=== PATIENT | male | born 1990 | race Two or more races ===

== ENCOUNTER 2018-12-10 06:27 | Emergency (ER) | payer SELFPAY ==
[2018-12-10] MEDS ORDERED: METOCLOPRAMIDE HCL ORAL SOLN 10 MG/10 ML UDCUP PO ONE (08:09)
[2018-12-10] MEDS ORDERED: MAG HYDROX/AL HYDROX/SIMETH SUSP 30 ML UDCUP PO ONE (08:09)
[2018-12-10] MEDS ORDERED: LIDOCAINE 2% VISCOUS SOLN 20 ML UDCUP PO ONE (08:09)
[2018-12-10 08:16] LABS: ABSOLUTE EOSINOPHILS # (AUTO) 0.1 10^3/uL (0.0-0.6); ABSOLUTE LYMPHOCYTES (AUTO) 1.3 10^3/uL (0.5-4.7); ABSOLUTE MONOCYTES (AUTO) 0.7 10^3/uL (0.1-1.4); ABSOLUTE NEUT (AUTO) 9.6 10^3/uL (1.7-8.2); BASOPHILS % (AUTO) 0.3 % (0-2); EOSINOPHILS % (AUTO) 1.2 % (0-6); HEMATOCRIT 44.2 % (37.9-51.0); HEMOGLOBIN 15.3 g/dL (13.5-17.0); LYMPHOCYTES % (AUTO) 11.3 % (13-45); MEAN CORPUSCULAR HEMOGLOBIN 31.4 pg (27.0-33.4); MEAN CORPUSCULAR HGB CONC 34.6 g/dL (32.0-36.0); MEAN CORPUSCULAR VOLUME 91 fl (80-97); MONOCYTES % (AUTO) 6.2 % (3-13); PLATELET COUNT 215 10^3/uL (150-450); RED BLOOD COUNT 4.88 10^6/uL (4.35-5.55); RED CELL DISTRIBUTION WIDTH 13.4 % (11.5-14.0); TOTAL CELLS COUNTED % (AUTO) 100 %; WHITE BLOOD COUNT 11.8 10^3/uL (4.0-10.5)
[2018-12-10 08:35] LABS: ALBUMIN 4.1 g/dL (3.5-5.0); ALKALINE PHOSPHATASE 108 U/L (38-126); ANION GAP 9 (5-19); ASPARTATE AMINO TRANSFERASE 37 U/L (17-59); BILIRUBIN,DIRECT 0.1 mg/dL (0.0-0.4); BILIRUBIN,TOTAL 0.5 mg/dL (0.2-1.3); BLOOD UREA NITROGEN 10 mg/dL (7-20); CALCIUM 9.3 mg/dL (8.4-10.2); CARBON DIOXIDE 25 mmol/L (22-30); CHLORIDE 104 mmol/L (98-107); GLUCOSE 99 mg/dL (75-110); POTASSIUM 4.4 mmol/L (3.6-5.0); TOTAL PROTEIN 7.2 g/dL (6.3-8.2)
--- NOTE | 2018-12-10 08:58 | ER Document Report ---
ED General - General Chief Complaint: Abdominal Pain Stated Complaint: STOMACH PAIN Time Seen by Provider: 12/10/18 08:08 TRAVEL OUTSIDE OF THE [place] IN LAST 30 DAYS: No - HPI Notes: Patient is a 28-year-old male with no significant past medical history presents complaining of epigastric abdominal pain that began yesterday. Patient states that he was drinking a few days ago, but only drank one beer yesterday when he started noticing discomfort in his epigastrium. Patient states that he was nauseous at the time but did not vomit. He is otherwise urinating normally and having normal bowel movements without any melena or hematochezia. Denies drug allergies. No other concerns or complaints. Denies any headache, fever, neck pain, URI, sore throat, chest pain, palpitations, syncope, cough, shortness of breath, wheeze, dyspnea, vomiting/diarrhea, urinary retention, dysuria, hematuria, or rash. - Related Data Allergies/Adverse Reactions: No Known Allergies Allergy (Unverified 12/10/18 08:20) Past Medical History - Social History Smoking Status: Current Every Day Smoker Frequency of alcohol use: 3 days straight, but one beer last night Family History: Reviewed & Not Pertinent Patient has suicidal ideation: No Patient has homicidal ideation: No Review of Systems - Review of Systems -: Yes All other systems reviewed and negative Physical Exam - Vital signs Vitals: Temp Pulse Resp BP Pulse Ox 98.2 F 76 16 150/83 H 100 12/10/18 06:33 12/10/18 06:33 12/10/18 06:33 12/10/18 06:33 12/10/18 06:33 - Notes Notes: PHYSICAL EXAMINATION: GENERAL: Well-appearing, well-nourished and in no acute distress. HEAD: Atraumatic, normocephalic. EYES: Pupils equal round and reactive to light, extraocular movements intact, sclera anicteric, conjunctiva are normal. ENT: Nares patent and without discharge. oropharynx clear without exudates. No tonsilar hypertrophy or erythema. Moist mucous membranes. NECK: Normal range of motion, supple without lymphadenopathy LUNGS: Breath sounds clear to auscultation bilaterally and equal. No wheezes rales or rhonchi. HEART: Regular rate and rhythm without murmurs, rubs, gallops. ABDOMEN: Soft, nondistended abdomen. No guarding, no rebound. No masses appreciated. Normal bowel sounds present. No CVA tenderness bilaterally. [place] neg. No tenderness at [place]. Very mild tenderness epigastrum. Musculoskeletal: FROM to passive/active. Strength 5+/5. Extremities: No cyanosis, clubbing, or edema b/l. Peripheral pulses 2+. Capillary refill less than 3 seconds. NEUROLOGICAL: Normal speech, normal gait. PSYCH: Normal mood, normal affect. SKIN: Warm, Dry, normal turgor, no rashes or lesions noted. Course - Re-evaluation Re-evalutation: 12/10/18 08:56 Patient is an afebrile, well-hydrated, 28-year-old male who presents to the ED with epigastric abdominal pain, suspect gastritis/gerd. Vitals are acceptable without any significant tachycardia, tachypnea, or hypoxia. PE is otherwise unremarkable. CBC, CMP, lipase, UA was unremarkable for any acute pathology. Patient was given GI cocktail which completely resolved his symptoms. No other labs or imaging warranted at this time based on H&P. Patient is tolerating p.o. without difficulties and is nontoxic-appearing. Low suspicion/risk for acute appendicitis, bowel obstruction, acute cholecystitis, perforated diverticulitis, incarcerated hernia, pancreatitis, perforated ulcer, peritonitis, sepsis, testicular torsion, or other systemic emergent condition at this time. Patient is aware that his condition can change from initial presentation and he needs to monitor symptoms closely and seek medical attention if any acute changes. I will send him home with a prescription for omeprazole and Carafate. Conservative measures otherwise for symptoms. Recheck with PCM in 3-5 days. Consider consult with a hog worker. Return to the ED with any worsening/concerning symptoms otherwise as reviewed in discharge. Patient is in agreement. - Vital Signs Vital signs: Temp Pulse Resp BP Pulse Ox 98.2 F 76 16 150/83 H 100 12/10/18 06:33 12/10/18 06:33 12/10/18 06:33 12/10/18 06:33 12/10/18 06:33 - Laboratory Result Diagrams: 12/10/18 08:00 12/10/18 08:00 Laboratory results interpreted by me: 12/10/18 08:00 WBC 11.8 H Lymph % (Auto) 11.3 L Absolute Neuts (auto) 9.6 H Seg Neutrophils % 81.0 H Discharge - Discharge Clinical Impression: Epigastric pain Condition: Stable Disposition: HOME, SELF-CARE Additional Instructions: Maintain adequate fluid and food intake [place] diet (B.R.[employer].T.) Bananas, rice, apples, toast, etc Avoid alcohol tylenol if needed Monitor for any worsening symptoms Make sure you are staying hydrated enough to urinate and have normal BM's Recheck with your PCM in 3-5 days Consider consult with Gastroenterology for ongoing/worsening symptoms Return to the ED with any worsening symptoms and/or development of fever, headache, chest pain, palpitations, syncope, shortness of breath, trouble breathing, abdominal pain, n/v/d, blood in stool/urine, weakness, or other worsening symptoms that are concerning to you. Prescriptions: Sucralfate [Carafate] 1 gm PO BID #100 ml Omeprazole 20 mg PO DAILY #30 tablet.dr Forms: Elevated Blood Pressure, Smoking Cessation Education Referrals: JAYCEE WINKLER MD [ACTIVE STAFF] - Follow up as needed SRUTHI MCKAY MD [ACTIVE STAFF] - Follow up as needed
[2018-12-10 09:14] LABS: APPEARANCE,URINE CLEAR; BILIRUBIN,URINE NEGATIVE (NEGATIVE); COLOR,URINE YELLOW; GLUCOSE, URINE NEGATIVE (NEGATIVE); KETONES,URINE NEGATIVE (NEGATIVE); LEUKOCYTE ESTERASE,URINE NEGATIVE (NEGATIVE); NITRITE,URINE NEGATIVE (NEGATIVE); PROTEIN,URINE NEGATIVE (NEGATIVE); URINE SPECIFIC GRAVITY 1.009; UROBILINOGEN,URINE NEGATIVE mg/dL (<2.0)
[2018-12-10 10:32] VITALS: BP 127/48
== END 2018-12-10 09:33 | disposition home or self-care (01) ==
LOC: ER 06:27
DX: R10.13 Epigastric pain (principal); R11.0 Nausea; F17.200 Nicotine dependence, unspecified, uncomplicated
CPT/HCPCS: 99284; 36415; 83690; 85025; 80053; 81001; J3490

== ENCOUNTER 2019-02-17 06:43 | Emergency (ER) | payer SELFPAY ==
[2019-02-17 08:49] LABS: APPEARANCE,URINE CLEAR; BILIRUBIN,URINE NEGATIVE (NEGATIVE); COLOR,URINE COLORLESS; GLUCOSE, URINE NEGATIVE (NEGATIVE); KETONES,URINE NEGATIVE (NEGATIVE); LEUKOCYTE ESTERASE,URINE NEGATIVE (NEGATIVE); NITRITE,URINE NEGATIVE (NEGATIVE); PROTEIN,URINE 30 mg/dL (NEGATIVE); URINE SPECIFIC GRAVITY 1.003; UROBILINOGEN,URINE NEGATIVE mg/dL (<2.0)
[2019-02-17 08:50] LABS: ABSOLUTE EOSINOPHILS # (AUTO) 0.1 10^3/uL (0.0-0.6); ABSOLUTE LYMPHOCYTES (AUTO) 2.1 10^3/uL (0.5-4.7); ABSOLUTE MONOCYTES (AUTO) 0.6 10^3/uL (0.1-1.4); ABSOLUTE NEUT (AUTO) 3.9 10^3/uL (1.7-8.2); BASOPHILS % (AUTO) 0.5 % (0-2); EOSINOPHILS % (AUTO) 0.8 % (0-6); HEMATOCRIT 50.7 % (37.9-51.0); HEMOGLOBIN 18.1 g/dL (13.5-17.0); LYMPHOCYTES % (AUTO) 31.4 % (13-45); MEAN CORPUSCULAR HEMOGLOBIN 32.8 pg (27.0-33.4); MEAN CORPUSCULAR HGB CONC 35.8 g/dL (32.0-36.0); MEAN CORPUSCULAR VOLUME 92 fl (80-97); MONOCYTES % (AUTO) 8.9 % (3-13); PLATELET COUNT 252 10^3/uL (150-450); RED BLOOD COUNT 5.54 10^6/uL (4.35-5.55); SEGMENTED NEUTROPHILS % (AUTO) 58.4 % (42-78); TOTAL CELLS COUNTED % (AUTO) 100 %; WHITE BLOOD COUNT 6.7 10^3/uL (4.0-10.5)
[2019-02-17 09:04] LABS: URINE AMPHETAMINES SCREEN NEGATIVE; URINE BARBITURATES SCREEN NEGATIVE; URINE BENZODIAZEPINES SCREEN NEGATIVE; URINE COCAINE SCREEN NEGATIVE; URINE METHADONE SCREEN NEGATIVE; URINE PHENCYCLIDINE SCREEN NEGATIVE
[2019-02-17 09:09] LABS: URINE MARIJUANA (THC) SCREEN UNCONFIRMED POSITIVE
[2019-02-17 09:15] LABS: ALBUMIN 4.4 g/dL (3.5-5.0); ALCOHOL 293 mg/dL (NONE DETECTED); ALKALINE PHOSPHATASE 131 U/L (38-126); ANION GAP 14 (5-19); ASPARTATE AMINO TRANSFERASE 79 U/L (17-59); BILIRUBIN,DIRECT 0.3 mg/dL (0.0-0.4); BILIRUBIN,TOTAL 0.5 mg/dL (0.2-1.3); BLOOD UREA NITROGEN 9 mg/dL (7-20); CALCIUM 9.2 mg/dL (8.4-10.2); CARBON DIOXIDE 27 mmol/L (22-30); CHLORIDE 100 mmol/L (98-107); GLUCOSE 103 mg/dL (75-110); POTASSIUM 4.1 mmol/L (3.6-5.0); TOTAL PROTEIN 7.8 g/dL (6.3-8.2)
[2019-02-17] MEDS ORDERED: DEXTROSE 5%-LACTATED RINGERS 1,000 ML IV ONE (09:26)
[2019-02-17] MEDS ORDERED: FAMOTIDINE INJ/PF 20 MG/2 ML SDV IV ONE (09:27)
--- NOTE | 2019-02-17 09:27 | ER Document Report ---
ED General - General Chief Complaint: Alcohol Withdrawl Stated Complaint: ALCOHOL WITHDRAWL Time Seen by Provider: 02/17/19 09:00 Mode of Arrival: Ambulatory Information source: Patient Notes: Patient reports that he has been drinking Fozia for the last for 5 days. States he is at home with other relatives during this drinking binge that he has been on. States he is not suicidal homicidal. States that he perhaps drinks a little bit too much on this binge and therefore is has come to the emergency department because he had some nausea. Denies any abdominal pain diarrhea or seizure activity or chest pain. Denies headache. Denies any fever or chills. Patient reports that he is not alcoholic however he does state that he is a binge alcohol drinker. TRAVEL OUTSIDE OF THE [place] IN LAST 30 DAYS: No - HPI Onset: Other - 4 days ago Onset/Duration: Gradual Quality of pain: Other - Some abdominal nausea present. Severity: Moderate Pain Level: 0 Associated symptoms: Nausea Exacerbated by: Other - Excess alcohol drinking Relieved by: Other - No medications have been taking for relief. Similar symptoms previously: Yes Recently seen / treated by doctor: No - Related Data Allergies/Adverse Reactions: No Known Allergies Allergy (Unverified 12/10/18 08:20) Past Medical History - Social History Smoking Status: Unknown if Ever Smoked Drug Abuse: None Lives with: Family Family History: Reviewed & Not Pertinent Patient has suicidal ideation: No Patient has homicidal ideation: No Psychiatric Medical History: Reports: Hx Schizophrenia Past Surgical History: Reports: Hx Appendectomy Review of Systems - Review of Systems Constitutional: See HPI Gastrointestinal: See HPI, Nausea Physical Exam - Vital signs Vitals: Temp Pulse Resp BP Pulse Ox 98.3 F 107 H 20 141/85 H 97 02/17/19 07:01 02/17/19 07:01 02/17/19 07:01 02/17/19 07:01 02/17/19 07:01 Interpretation: Normal - General General appearance: Appears well, Alert - HEENT Head: Normocephalic, Atraumatic Eyes: Normal Pupils: PERRL - Respiratory Respiratory status: No respiratory distress Chest status: Nontender Breath sounds: Normal Chest palpation: Normal - Cardiovascular Rhythm: Regular, Tachycardia Heart sounds: Normal auscultation Murmur: No - Abdominal Inspection: Normal Distension: No distension Bowel sounds: Normal Tenderness: Nontender Organomegaly: No organomegaly - Back Back: Normal, Nontender - Extremities General upper extremity: Normal inspection, Nontender, Normal color, Normal ROM, Normal temperature General lower extremity: Normal inspection, Nontender, Normal color, Normal ROM, Normal temperature, Normal weight bearing. No: Suleman's sign - Neurological Neuro grossly intact: Yes Cognition: Normal Orientation: AAOx4 [place]ika Coma Scale Eye Opening: Spontaneous [place] Coma Scale Verbal: Oriented [place] Coma Scale Motor: Obeys Commands [place] Coma Scale Total: 15 Speech: Normal Motor strength normal: LUE, RUE, LLE, RLE Sensory: Normal - Psychological Associated symptoms: Normal affect, Normal mood - Skin Skin Temperature: Warm Skin Moisture: Dry Skin Color: Normal Course - Re-evaluation Re-evalutation: 02/17/19 16:26 Patient had 1 vomiting episode while in the ED which was green bilious liquid. Patient's tachycardia has improved with IV fluid administration. Patient is resting comfortably with no signs of tremors or delirium tremens at this time. Pending most recent blood test for alcohol level prior to discharge. 02/17/19 16:58 Repeat evaluation of serum alcohol level came back at 157. - Vital Signs Vital signs: Temp Pulse Resp BP Pulse Ox 98.1 F 107 H 18 144/80 H 100 02/17/19 14:20 02/17/19 07:01 02/17/19 14:00 02/17/19 13:31 02/17/19 13:31 - Laboratory Result Diagrams: 02/17/19 07:57 02/17/19 07:57 Laboratory results interpreted by me: 02/17/19 02/17/19 02/17/19 07:57 07:57 07:59 Hgb 18.1 H AST 79 H Alkaline Phosphatase 131 H Ammonia Urine Protein 30 H Urine Blood SMALL H 02/17/19 08:32 Hgb AST Alkaline Phosphatase Ammonia 33.3 H Urine Protein Urine Blood Discharge - Discharge Clinical Impression: Acute alcohol intoxication, Dehydration, Nausea and vomiting Condition: Stable Disposition: HOME, SELF-CARE Instructions: Antinausea Medication ([facility]) Additional Instructions: Vomiting Vomiting (or nausea without vomiting) can be caused by many other different problems. It can mean that something's wrong with the stomach, such as ulcers or inflammation or the intestinal tract, such as appendicitis. But it can also be a symptom of a problem that has nothing to do with the stomach or intestines. Vomiting is common with severe headaches, earaches, tonsillitis, and kidney infections, etc. We see it with pneumonia or heart attacks. Drugs can cause nausea and vomiting. Many abdominal problems cause vomiting; for example, gallstones, kidney stones, pancreatitis, and intestinal obstruction (blocked bowels). In most cases, curing the vomiting depends on fixing the problem that caused it. For temporary relief, we may use an anti-nausea medicine. For home use, we can prescribe suppositories, chewable pills, pills that dissolve in the mouth, or liquid anti-nausea drugs. If the vomiting seems to be caused by a problem in the stomach, acid-suppressing drugs may be prescribed as well. It's important to avoid dehydration. Sip small amounts of clear liquids (soft drinks, tea, broth, etc) . Try to take fluids frequently even if you are vomiting to prevent dehydration. Take increasing amounts of fluid and when liquids are being consumed successfully, advance to small amounts of bland food (toast, soups, mashed potatoes, etc.) until you are able to resume a regular diet. Avoid aspirin, tobacco, and alcohol. If the vomiting worsens, if the problem that's making you vomit worsens, or if there's evidence of bleeding in the stomach (such as black, tarry stool, or bloody or black vomit), you should return immediately. Also, return if abdominal pain worsens or becomes localized to one area or you develop high fever. Call your doctor if you aren't improved in 24 hours.Alcohol Withdrawal Your symptoms are caused by alcohol withdrawal. After a period of frequent drinking, the brain and body are changed by the alcohol. When you quit or reduce your drinking, the nervous system becomes unstable. Withdrawal symptoms can start a few hours after your last drink, but sometimes don't begin until a couple of days later. Symptoms can include shakiness, sweating, insomnia, nausea, vomiting, fearfulness, hallucinations, and seizures. In addition to the acute effects of alcohol withdrawal, we often have to deal with the medical effects of alcoholism. These problems often include dehydration, stomach irritation, intestinal bleeding, low blood sugar, liver disease, and pancreas inflammation. Treatment for alcohol withdrawal includes mild sedatives, vitamins, and fluids. You need to be with someone who can help if symptoms become severe. Many patients can withdraw at home. Admission to the hospital or a detox facility may be necessary if withdrawal symptoms are severe and uncontrollable. Abstaining from alcohol is the only effective long-term treatment. If you start drinking again, you will not be able to control yourself after the first drink. Treatment programs are available. In addition, many alcoholics benefit from Alcoholics Anonymous or other support groups available through your counselor or synagogue ham doctor. [facility] and [facility]TE[facility] are support groups for friends and family members of an alcoholic. Go to the emergency room if you develop persistent vomiting, severe abdominal pain, fever, shortness of breath, hallucinations, uncontrollable tremors, or seizures. Recommend follow-up with mental health clinic regarding alcohol detox. Prescriptions: Chlordiazepoxide HCl [Librium 25 mg Capsule] 1 cap PO QID PRN #20 capsule PRN Reason: Famotidine [Pepcid 40 mg Tablet] 40 mg PO DAILY #20 tablet
[2019-02-17] MEDS ORDERED: NORMAL SALINE 1000 ML 1,000 ML with POTASSIUM CHLORIDE 20 MEQ, MAGNESIUM SULFATE 8 MEQ,... IV ONE ×5 (09:30)
[2019-02-17] MEDS ORDERED: LORAZEPAM INJ 2 MG/1 ML VIAL IV ONE ×2 (12:54→15:28)
[2019-02-17] MEDS ORDERED: RINGERS SOLUTION,LACTATED 1,000 ML IV ONE (15:29)
[2019-02-17 17:57] VITALS: BP 156/87
== END 2019-02-17 17:50 | disposition home or self-care (01) ==
LOC: ER 06:43
DX: F10.129 Alcohol abuse with intoxication, unspecified (principal); E86.0 Dehydration; R11.2 Nausea with vomiting, unspecified; R00.0 Tachycardia, unspecified
CPT/HCPCS: 96376; 99284; 96361; 96375; 96365; 96366; 36415; 80307 ×2; 82140; 85025; 80053; 81001; J3475; J2060; J3480; J3411; J7121; J7030; J7120; S0028; J3490

== ENCOUNTER 2019-02-19 20:58 | Emergency (ER) | payer SELFPAY ==
--- NOTE | 2019-02-19 22:08 | ER Document Report ---
ED Medical Screen (RME) - General Chief Complaint: Chest Pain Stated Complaint: CHEST PAINS,ABDOMINAL AND BACK PAIN Time Seen by Provider: 02/19/19 22:05 Mode of Arrival: Wheelchair Information source: Patient Notes: 28-year-old male presented to ED for complaint of severe sharp chest pain. He states he has been drinking beer and vodka and Fozia for the last 6 days. He states he has a history of schizophrenia and binge drinking. He does smoke a pack a day. He states he also smokes marijuana and works at a construction site. He states today he is only had 2 beer but is been drinking heavily every day for 6 days. I have greeted and performed a rapid initial assessment of this patient. A comprehensive ED assessment and evaluation of the patient, analysis of test results and completion of medical decision making process will be conducted by an additional ED providers. TRAVEL OUTSIDE OF THE [place] IN LAST 30 DAYS: No - Related Data Allergies/Adverse Reactions: No Known Allergies Allergy (Unverified 12/10/18 08:20) Past Medical History Psychiatric Medical History: Reports: Hx Schizophrenia Past Surgical History: Reports: Hx Appendectomy Physical Exam - Vital signs Vitals: Temp Pulse Resp BP Pulse Ox 98.6 F 111 H 20 165/80 H 97 02/19/19 21:08 02/19/19 21:08 02/19/19 21:08 02/19/19 21:08 02/19/19 21:08 Course - Vital Signs Vital signs: Temp Pulse Resp BP Pulse Ox 98.6 F 111 H 20 165/80 H 97 02/19/19 21:08 02/19/19 21:08 02/19/19 21:08 02/19/19 21:08 02/19/19 21:08
[2019-02-19 22:37] LABS: ABSOLUTE LYMPHOCYTES (AUTO) 1.8 10^3/uL (0.5-4.7); HEMOGLOBIN 16.3 g/dL (13.5-17.0); TOTAL CELLS COUNTED % (AUTO) 100 %
[2019-02-19 22:44] LABS: ABSOLUTE NEUT (AUTO) 7.8 10^3/uL (1.7-8.2); BASOPHILS % (AUTO) 0.3 % (0-2); EOSINOPHILS % (AUTO) 0.4 % (0-6); HEMATOCRIT 45.3 % (37.9-51.0); LYMPHOCYTES % (AUTO) 16.9 % (13-45); MEAN CORPUSCULAR HEMOGLOBIN 32.9 pg (27.0-33.4); MEAN CORPUSCULAR HGB CONC 35.9 g/dL (32.0-36.0); MEAN CORPUSCULAR VOLUME 92 fl (80-97); PLATELET COUNT 218 10^3/uL (150-450); RED BLOOD COUNT 4.95 10^6/uL (4.35-5.55); RED CELL DISTRIBUTION WIDTH 12.8 % (11.5-14.0); SEGMENTED NEUTROPHILS % (AUTO) 73.4 % (42-78); WHITE BLOOD COUNT 10.6 10^3/uL (4.0-10.5)
[2019-02-19 22:54] LABS: APPEARANCE,URINE CLEAR; BILIRUBIN,URINE NEGATIVE (NEGATIVE); COLOR,URINE COLORLESS; GLUCOSE, URINE NEGATIVE (NEGATIVE); KETONES,URINE NEGATIVE (NEGATIVE); PROTEIN,URINE NEGATIVE (NEGATIVE); URINE SPECIFIC GRAVITY 1.001; UROBILINOGEN,URINE NEGATIVE mg/dL (<2.0)
--- NOTE | 2019-02-19 22:54 | RADIOLOGY REPORT (SQ) ---
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 COMPARISON: None. FINDINGS: Normal heart size without pulmonary edema. The lungs are clear. No pleural effusions or pneumothorax. No acute bony findings are seen. IMPRESSION: No evidence of acute cardiopulmonary disease.
[2019-02-19 22:59] LABS: ALBUMIN 4.6 g/dL (3.5-5.0); ALKALINE PHOSPHATASE 124 U/L (38-126); ANION GAP 17 (5-19); ASPARTATE AMINO TRANSFERASE 51 U/L (17-59); BILIRUBIN,DIRECT 0.3 mg/dL (0.0-0.4); BILIRUBIN,TOTAL 0.7 mg/dL (0.2-1.3); BLOOD UREA NITROGEN 2 mg/dL (7-20); CALCIUM 8.8 mg/dL (8.4-10.2); CARBON DIOXIDE 24 mmol/L (22-30); CHLORIDE 96 mmol/L (98-107); GLUCOSE 98 mg/dL (75-110); POTASSIUM 3.9 mmol/L (3.6-5.0); TOTAL PROTEIN 7.8 g/dL (6.3-8.2)
--- NOTE | 2019-02-19 23:03 | EKG REPORT ---
SEVERITY:- BORDERLINE ECG - SINUS TACHYCARDIA BORDERLINE T WAVE ABNORMALITIES : Confirmed by: Chester Rizvi MD 19-Feb-2019 23:02:54
[2019-02-19 23:07] LABS: ALCOHOL < 10 mg/dL (NONE DETECTED)
[2019-02-19 23:13] LABS: URINE AMPHETAMINES SCREEN NEGATIVE; URINE BARBITURATES SCREEN NEGATIVE; URINE BENZODIAZEPINES SCREEN NEGATIVE; URINE COCAINE SCREEN NEGATIVE; URINE MARIJUANA (THC) SCREEN NEGATIVE; URINE METHADONE SCREEN NEGATIVE; URINE PHENCYCLIDINE SCREEN NEGATIVE
[2019-02-20] MEDS ORDERED: ONDANSETRON 4 MG TAB.RAPDIS PO ONE ×2 (00:11→11:37)
[2019-02-20] MEDS ORDERED: FAMOTIDINE 20 MG TABLET PO ONE (00:11)
[2019-02-20] MEDS ORDERED: SUCRALFATE 1 GM TABLET PO ONE (00:11)
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
[2019-02-20 00:50] LABS: ACETAMINOPHEN < 10 ug/mL (10-30); SALICYLATE < 1.0 mg/dL (2.0-20.0)
--- NOTE | 2019-02-20 10:56 | PSYCHOLOGICAL NOTE ---
Psych Note - Psych Note Date seen by psych provider: 02/20/19 Time seen by psych provider: 08:15 Psych Note: Reason for Consult: ETHO/medication recommendations for mental health Patient reports is friend brought him to [facility] ED for medical concerns he was experiencing from alcohol withdrawal. He reports chest pain, stomach daniela, shaking, sweating, and hot/cold flashes. (Clinician notes the patient is resting comfortably with no signs of distress, tremors, or psychomotor agitation). Patient reports his stomach has been hurting because he has not been eating and has been binge drinking for the last 5 days. He stated his last drink was yesterday morning. Patient reports a history of schizophrenia and taking one small pill be got from a hospital in [place]. He reports he was diagnosed when living in [place] after he "testified" to police about gang activity of [employer]. Patient reports frustration and anxiety that the police did not put him into protection like they told him they would do if he talked to them. He reports he is always scared and many times does not feel safe. He confirms he is nomadic, moving to "the job." He has lived in the local area for about4 months, before that he was in [place] for about 7 months. He has also lived in [place], [place] and [place]. He reports his "symptoms" of his schizophrenia are present when he goes through detox. Patient is alert and orientated to person, place, time and circumstance. Mood is euythmic with congruent affect. Patient denies suicidal and homicidal ideation. Delusions are absent (as patient's reported [employer] fear of retaliation cannot be confirmed or disproven at this time) Behavior is congruent with an intact reality based presentation ie organized and linear thought processes. Eye contact was well maintained. Conversational speech is overall within normal rate tone and prosody (clinician notes patent's first language is Polish). Intellectual abilities appear to be within average range. Attention and concentration are good. Insight, judgment and impulse control are fair. Impression/Plan: Patient is cleared from acute psychiatric services. Patient reports a diagnosis of schizophrenia; however, there is no evidence to support this. He reports being on medication for his disorder when living in [place] that he received from [facility]. He stated it was only one pill and it was small; he stated he has been out for about 3 months. Clinician notes the patient was prescribed Ambien when at [facility] in [place]. He is not showing any signs of responding to internal stimuli ie maintains good eye contact with organized and linear conversation speech. Patient does report significant anxiety and fear after talking to police about gang activity while he was living in [place]. While this is not a normal report for our area; it cannot be disregarded as a delusion. It is a possible occurrence and the gang, [employer], is well known and feared. If the patient did talk to law enforcement about gang activity of [employer], his fear and anxiety is understandable. The patient has been seen multiple times here at [facility] ED for concerns for alcohol detox. He is currently not demonstrating any signs of significant withdrawal ie no visible tremors or psychomotor agitation. At this time the patient is recommended to follow up with outpatient substance abuse treatment. If he would like assistance with anxiety, he is encouraged to obtain outpatient mental health services. He has been provided a local resource list of providers including mobile crisis and [facility] contact information. Dr. Gillespie was consulted on the care and management of this patient; attending physician is in agreement with recommendations and disposition.
[2019-02-20] MEDS ORDERED: ACETAMINOPHEN 325 MG TABLET PO ONE (11:12)
[2019-02-20 12:01] VITALS: BP 168/88
== END 2019-02-20 12:00 | disposition home or self-care (01) ==
LOC: ER 20:58
DX: F32.9 Major depressive disorder, single episode, unspecified (principal); F10.10 Alcohol abuse, uncomplicated; F22 Delusional disorders; R10.10 Upper abdominal pain, unspecified; R07.9 Chest pain, unspecified; M54.9 Dorsalgia, unspecified; F17.210 Nicotine dependence, cigarettes, uncomplicated
CPT/HCPCS: 93005; 99285; 36415; 80307 ×4; 83690; 85025; 80053; 81001; 84484; 71046; 93010; S0119

== ENCOUNTER 2019-03-29 05:34 | Emergency (ER) | payer SELFPAY ==
[2019-03-29] MEDS ORDERED: ONDANSETRON 4 MG TAB.RAPDIS PO ONE ×2 (05:57→10:18)
[2019-03-29 06:22] LABS: ABSOLUTE LYMPHOCYTES (AUTO) 1.6 10^3/uL (0.5-4.7); ABSOLUTE MONOCYTES (AUTO) 0.5 10^3/uL (0.1-1.4); ABSOLUTE NEUT (AUTO) 9.9 10^3/uL (1.7-8.2); BASOPHILS % (AUTO) 0.4 % (0-2); EOSINOPHILS % (AUTO) 0.2 % (0-6); HEMATOCRIT 43.7 % (37.9-51.0); HEMOGLOBIN 15.9 g/dL (13.5-17.0); LYMPHOCYTES % (AUTO) 13.2 % (13-45); MEAN CORPUSCULAR HEMOGLOBIN 32.9 pg (27.0-33.4); MEAN CORPUSCULAR HGB CONC 36.3 g/dL (32.0-36.0); MEAN CORPUSCULAR VOLUME 91 fl (80-97); MONOCYTES % (AUTO) 4.1 % (3-13); PLATELET COUNT 239 10^3/uL (150-450); RED BLOOD COUNT 4.82 10^6/uL (4.35-5.55); RED CELL DISTRIBUTION WIDTH 12.9 % (11.5-14.0); SEGMENTED NEUTROPHILS % (AUTO) 82.1 % (42-78); TOTAL CELLS COUNTED % (AUTO) 100 %; WHITE BLOOD COUNT 12.1 10^3/uL (4.0-10.5)
[2019-03-29 06:25] LABS: APPEARANCE,URINE SLIGHTLY-CLOUDY; BILIRUBIN,URINE NEGATIVE (NEGATIVE); COLOR,URINE YELLOW; GLUCOSE, URINE >=500 mg/dL (NEGATIVE); KETONES,URINE TRACE mg/dL (NEGATIVE); LEUKOCYTE ESTERASE,URINE NEGATIVE (NEGATIVE); NITRITE,URINE NEGATIVE (NEGATIVE); PROTEIN,URINE >=500 mg/dL (NEGATIVE); URINE SPECIFIC GRAVITY 1.023; UROBILINOGEN,URINE NEGATIVE mg/dL (<2.0)
[2019-03-29 06:57] LABS: ALBUMIN 4.9 g/dL (3.5-5.0); ALKALINE PHOSPHATASE 83 U/L (38-126); ANION GAP 16 (5-19); ASPARTATE AMINO TRANSFERASE 36 U/L (17-59); BILIRUBIN,TOTAL 0.4 mg/dL (0.2-1.3); BLOOD UREA NITROGEN 8 mg/dL (7-20); CALCIUM 9.1 mg/dL (8.4-10.2); CARBON DIOXIDE 27 mmol/L (22-30); CHLORIDE 92 mmol/L (98-107); GLUCOSE 167 mg/dL (75-110); TOTAL PROTEIN 7.9 g/dL (6.3-8.2)
[2019-03-29] MEDS ORDERED: ACETAMINOPHEN 325 MG TABLET PO ONE (07:46)
[2019-03-29] MEDS ORDERED: BUTALB/ACETAMINOPHEN/CAFFEINE 1 TAB EACH PO ONE (10:18)
--- NOTE | 2019-03-29 10:34 | ER Document Report ---
ED General - General Chief Complaint: Nausea/Vomiting Stated Complaint: HEADACHE,VOMITING Time Seen by Provider: 03/29/19 09:38 Mode of Arrival: Ambulatory Information source: Patient TRAVEL OUTSIDE OF THE U.S. IN LAST 30 DAYS: No - HPI Notes: Patient presents with 2 days of headache fever chills body aches and right lower quadrant abdominal pain. The symptoms have been intermittent. They are worse with exertion better with rest. The abdominal pain does not radiate. It is mild to moderate and constant. He has had some nausea and vomiting as well. No change of stool. No problems urination. He has no significant past medical history. - Related Data Allergies/Adverse Reactions: No Known Allergies Allergy (Unverified 12/10/18 08:20) Past Medical History - General Information source: Patient - Social History Smoking Status: Current Every Day Smoker Frequency of alcohol use: None Drug Abuse: None Family History: Reviewed & Not Pertinent Patient has suicidal ideation: No Patient has homicidal ideation: No Psychiatric Medical History: Reports: Hx Schizophrenia Past Surgical History: Reports: Hx Appendectomy - Immunizations Immunizations up to date: Yes Hx Diphtheria, Pertussis, Tetanus Vaccination: Yes Review of Systems - Review of Systems Constitutional: Chills, Fever, Malaise, Weakness Cardiovascular: denies: Chest pain, Palpitations Respiratory: denies: Cough, Short of breath -: Yes All other systems reviewed and negative Physical Exam - Vital signs Vitals: Temp Pulse Resp BP Pulse Ox 97.6 F 99 20 152/82 H 96 03/29/19 05:43 03/29/19 05:43 03/29/19 05:43 03/29/19 05:43 03/29/19 05:43 Interpretation: Normal - General General appearance: Appears well, Alert - HEENT Head: Normocephalic, Atraumatic Eyes: Normal Pupils: PERRL - Respiratory Respiratory status: No respiratory distress Chest status: Nontender Breath sounds: Normal Chest palpation: Normal - Cardiovascular Rhythm: Regular Heart sounds: Normal auscultation Murmur: No - Abdominal Inspection: Normal Distension: No distension Bowel sounds: Normal Tenderness: Tender - Mild to moderate tenderness palpation right lower quadrant without rebound or guarding. Organomegaly: No organomegaly - Back Back: Normal, Nontender - Extremities General upper extremity: Normal inspection, Nontender, Normal color, Normal ROM, Normal temperature General lower extremity: Normal inspection, Nontender, Normal color, Normal ROM, Normal temperature, Normal weight bearing. No: Suleman's sign - Neurological Neuro grossly intact: Yes Cognition: Normal Orientation: AAOx4 Willis Coma Scale Eye Opening: Spontaneous Deepika Coma Scale Verbal: Oriented Willis Coma Scale Motor: Obeys Commands Willis Coma Scale Total: 15 Speech: Normal Motor strength normal: LUE, RUE, LLE, RLE Sensory: Normal - Psychological Associated symptoms: Normal affect, Normal mood - Skin Skin Temperature: Warm Skin Moisture: Dry Skin Color: Normal Course - Re-evaluation Re-evalutation: 03/29/19 11:47 Patient comes in with fever chills body aches cough abdominal pain. CT the abdomen is unremarkable. Rest of patient's valuation seems most consistent with a viral syndrome or possible bacterial respiratory infection. I will discharge patient home with antibiotics pain medication and have him follow-up with his family physician. - Vital Signs Vital signs: Temp Pulse Resp BP Pulse Ox 97.6 F 99 20 152/82 H 96 03/29/19 05:43 03/29/19 05:43 03/29/19 05:43 03/29/19 05:43 03/29/19 05:43 - Laboratory Result Diagrams: 03/29/19 06:05 03/29/19 06:05 Laboratory results interpreted by me: 03/29/19 03/29/19 03/29/19 06:05 06:05 06:05 WBC 12.1 H MCHC 36.3 H Absolute Neuts (auto) 9.9 H Seg Neutrophils % 82.1 H Sodium 134.6 L Chloride 92 L Glucose 167 H Urine Protein >=500 H Urine Glucose (UA) >=500 H Urine Ketones TRACE H Urine Blood SMALL H - Diagnostic Test Radiology reviewed: Image reviewed, Reports reviewed Discharge - Discharge Clinical Impression: URI (upper respiratory infection) Qualifiers: URI type: unspecified URI Qualified Code(s): J06.9 - Acute upper respiratory infection, unspecified Condition: Stable Disposition: HOME, SELF-CARE Instructions: Upper Respiratory Illness ([facility]) Prescriptions: Sulfamethoxazole/Trimethoprim [Bactrim Ds Tablet] 1 each PO BID 7 Days #14 tablet Hydrocodone/Acetaminophen [Bogota 5-325 mg Tablet] 1 tab PO Q6 PRN 3 Days #10 tablet PRN Reason: Ondansetron [Zofran Odt 4 mg Tablet] 1 tab PO Q6 3 Days #10 tab.rapdis Forms: Return to Work Referrals: [facility] [Provider Group] - Follow up in 3-5 days
[2019-03-29 11:19] LABS: A TYPE INFLUENZA AG NEGATIVE (NEGATIVE); B INFLUENZA AG NEGATIVE (NEGATIVE)
--- NOTE | 2019-03-29 11:19 | RADIOLOGY REPORT (SQ) ---
EXAM DESCRIPTION: CT ABD/PELVIS NO ORAL OR IV COMPLETED DATE/TIME: 03/29/2019 10:42 am REASON FOR STUDY: rlq pain COMPARISON: None. TECHNIQUE: CT scan of the abdomen and pelvis performed without intravenous or oral contrast. Images reviewed with lung, soft tissue, and bone windows. Reconstructed coronal and sagittal MPR images revi ewed. All images stored on PACS. All CT scanners at this facility use dose modulation, iterative reconstruction, and/or weight based d osing when appropriate to reduce radiation dose to as low as reasonably achievable (ALARA). [facility]: Dose Right [facility]: CareDose [facility]: Dose Right [facility]: Teradose 4D [facility]: Skillaton RADIATION DOSE: CT Rad equipment meets quality standard of care and radiation dose reduction techniq ues were employed. CTDIvol: 6.5 mGy. DLP: 382 mGy-cm.mGy. LIMITATIONS: None. FINDINGS: LOWER CHEST: No significant findings. No nodules or infiltrates. NON-CONTRASTED LIVER, SPLEEN, ADRENALS: Evaluation limited by lack of IV contrast. No identified sign ificant masses. PANCREAS: No masses. No peripancreatic inflammatory changes. GALLBLADDER: No identified stones by CT criteria. No inflammatory changes to suggest cholecystitis. RIGHT KIDNEY AND URETER: No suspicious masses. Assessment limited by lack of IV contrast. No signif icant calcifications. No hydronephrosis or hydroureter. LEFT KIDNEY AND URETER: No suspicious masses. Assessment limited by lack of IV contrast. No signifi cant calcifications. No hydronephrosis or hydroureter. AORTA AND RETROPERITONEUM: No aneurysm. No retroperitoneal masses or adenopathy. BOWEL AND PERITONEAL CAVITY: No obvious masses or inflammatory changes. No free fluid. APPENDIX: Surgically absent. PELVIS, BLADDER, AND ABDOMINAL WALL:No abnormal masses. No free fluid. Bladder normal. BONES: No significant findings. OTHER: No other significant finding. IMPRESSION: 1. No evidence of acute intra-abdominal/ pelvic process. 2. Prior appendectomy. COMMENT: Quality ID # [id number]: Final reports with documentation of one or more dose reduction techniques (e.g., Automated exposure control, adjustment of the mA and/or kV according to patient size, use of iterative reconstruction technique) TECHNICAL DOCUMENTATION: JOB ID: [id number] 2011 [employer]- All Rights Reserved Reading location - IP[facility]workstation name: [email or web address]
[2019-03-29 11:59] VITALS: BP 142/62
== END 2019-03-29 12:01 | disposition home or self-care (01) ==
LOC: ER 05:34
DX: J06.9 Acute upper respiratory infection, unspecified (principal); R11.2 Nausea with vomiting, unspecified; R10.31 Right lower quadrant pain; R51 Headache; M79.10 Myalgia, unspecified site; R50.9 Fever, unspecified; F17.200 Nicotine dependence, unspecified, uncomplicated
CPT/HCPCS: 36415; 83690; 85025; 80053; 81001; 87804; 74176; J3490; S0119

== ENCOUNTER 2019-04-03 17:08 | Observation (INO) | payer SELFPAY ==
[2019-04-03] MEDS ORDERED: NORMAL SALINE 1000 ML 1,000 ML with POTASSIUM CHLORIDE 20 MEQ, MAGNESIUM SULFATE 8 MEQ,... IV SCH ×5 (18:00)
[2019-04-03 18:34] LABS: APPEARANCE,URINE CLEAR; BILIRUBIN,URINE NEGATIVE (NEGATIVE); COLOR,URINE YELLOW; GLUCOSE, URINE NEGATIVE (NEGATIVE); KETONES,URINE NEGATIVE (NEGATIVE); LEUKOCYTE ESTERASE,URINE NEGATIVE (NEGATIVE); NITRITE,URINE NEGATIVE (NEGATIVE); PROTEIN,URINE 100 mg/dL (NEGATIVE); URINE SPECIFIC GRAVITY 1.012; UROBILINOGEN,URINE NEGATIVE mg/dL (<2.0)
[2019-04-03 18:43] LABS: ABSOLUTE LYMPHOCYTES (AUTO) 1.7 10^3/uL (0.5-4.7); ABSOLUTE MONOCYTES (AUTO) 0.7 10^3/uL (0.1-1.4); ABSOLUTE NEUT (AUTO) 5.2 10^3/uL (1.7-8.2); BASOPHILS % (AUTO) 0.4 % (0-2); EOSINOPHILS % (AUTO) 0.2 % (0-6); HEMATOCRIT 44.3 % (37.9-51.0); HEMOGLOBIN 15.7 g/dL (13.5-17.0); LYMPHOCYTES % (AUTO) 22.7 % (13-45); MEAN CORPUSCULAR HEMOGLOBIN 32.4 pg (27.0-33.4); MEAN CORPUSCULAR HGB CONC 35.5 g/dL (32.0-36.0); MEAN CORPUSCULAR VOLUME 91 fl (80-97); PLATELET COUNT 243 10^3/uL (150-450); RED BLOOD COUNT 4.85 10^6/uL (4.35-5.55); RED CELL DISTRIBUTION WIDTH 13.1 % (11.5-14.0); SEGMENTED NEUTROPHILS % (AUTO) 67.7 % (42-78); TOTAL CELLS COUNTED % (AUTO) 100 %; WHITE BLOOD COUNT 7.7 10^3/uL (4.0-10.5)
[2019-04-03 18:56] LABS: ALBUMIN 4.1 g/dL (3.5-5.0); ALKALINE PHOSPHATASE 74 U/L (38-126); ANION GAP 10 (5-19); ASPARTATE AMINO TRANSFERASE 55 U/L (17-59); BILIRUBIN,TOTAL 0.5 mg/dL (0.2-1.3); BLOOD UREA NITROGEN 8 mg/dL (7-20); CALCIUM 8.1 mg/dL (8.4-10.2); CARBON DIOXIDE 30 mmol/L (22-30); CHLORIDE 99 mmol/L (98-107); GLUCOSE 145 mg/dL (75-110); TOTAL PROTEIN 6.8 g/dL (6.3-8.2)
[2019-04-03] MEDS ORDERED: METOCLOPRAMIDE HCL INJ/PF 10 MG/2 ML SDV IV ONE (21:40)
[2019-04-03] MEDS ORDERED: FAMOTIDINE INJ/PF 20 MG/2 ML SDV IV ONE (21:41)
[2019-04-03 22:02] LABS: ALCOHOL 276 mg/dL (NONE DETECTED)
[2019-04-03 22:05] LABS: ACETAMINOPHEN < 10 ug/mL (10-30)
--- NOTE | 2019-04-03 22:29 | RADIOLOGY REPORT (SQ) ---
EXAM DESCRIPTION: XR CHEST 1 VIEW COMPLETED DATE/TME: 04/03/2019 21:39 CLINICAL HISTORY: 28 years, Male, vomiting COMPARISON: February 19, 2019 NUMBER OF VIEWS: Single TECHNIQUE: LIMITATIONS: None. FINDINGS: Lungs grossly clear. Cardiomediastinal silhouette is of normal size IMPRESSION: Lungs grossly clear copyright 2011 [employer]- All Rights Reserved
[2019-04-03] MEDS ORDERED: PANTOPRAZOLE SODIUM 40 MG VIAL IV ONE (22:47)
[2019-04-04] MEDS ORDERED: NORMAL SALINE 1000 ML 1,000 ML IV ONE ×4 (00:23→18:15)
[2019-04-04 01:00] LABS: APPEARANCE,URINE CLEAR; BILIRUBIN,URINE NEGATIVE (NEGATIVE); COLOR,URINE STRAW; GLUCOSE, URINE NEGATIVE (NEGATIVE); KETONES,URINE NEGATIVE (NEGATIVE); LEUKOCYTE ESTERASE,URINE NEGATIVE (NEGATIVE); NITRITE,URINE NEGATIVE (NEGATIVE); PROTEIN,URINE NEGATIVE (NEGATIVE); URINE SPECIFIC GRAVITY 1.006; UROBILINOGEN,URINE NEGATIVE mg/dL (<2.0)
[2019-04-04 01:10] LABS: URINE AMPHETAMINES SCREEN NEGATIVE; URINE BENZODIAZEPINES SCREEN NEGATIVE; URINE COCAINE SCREEN NEGATIVE; URINE MARIJUANA (THC) SCREEN NEGATIVE; URINE METHADONE SCREEN NEGATIVE; URINE PHENCYCLIDINE SCREEN NEGATIVE
[2019-04-04 01:11] LABS: URINE BARBITURATES SCREEN UNCONFIRMED POSITIVE
--- NOTE | 2019-04-04 03:19 | RADIOLOGY REPORT (SQ) ---
CLINICAL HISTORY: n/v/hemetemesis/alcoholism COMPARISON: None. 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 FINDINGS: Lower lungs are clear. There is moderate thickening of the distal esophagus. Abdomen: Liver is enlarged and fatty in attenuation. There is no biliary dilatation. Gallbladder is normal in appearance. The pancreas and spleen are normal in appearance. The adrenal glands and kidneys are unremarkable. Abdominal aorta is normal in course and caliber without aneurysm. There is no free air. There is no retroperitoneal adenopathy. Pelvis: There is no bowel obstruction. Urinary bladder is unremarkable. There is no free fluid. Appendectomy was performed. Skeleton: There are no acute osseous findings. No suspicious bony lesions. IMPRESSION: Hepatic steatosis. Moderate thickening of the distal esophagus which could be due to esophagitis.
[2019-04-04] MEDS ORDERED: LORAZEPAM INJ 2 MG/1 ML VIAL IV ONE (05:15)
--- NOTE | 2019-04-04 05:44 | ER Document Report ---
Entered by JASMINE BEE SCRIBE 04/03/192109 Acting as scribe for:GILBERT SWAN MD ED General - General Chief Complaint: ETOH Abuse Stated Complaint: VOMITING/ETOH Time Seen by Provider: 04/03/19 20:00 Information source: Patient Notes: 28-year-old male presents to the emergency department complaining of vomiting blood. Patient states that he has been drinking every day for the past 7 days. Patient states that he has been drinking beer and that this is not usual activity for him to be drinking this much. Patient states that he has been vomiting a lot and that there is red blood in his vomit. Patient reports that he has been having headaches. Patient denies fevers and chills. TRAVEL OUTSIDE OF THE U.S[place] IN LAST 30 DAYS: No - Related Data Allergies/Adverse Reactions: No Known Allergies Allergy (Unverified 12/10/18 08:20) Past Medical History - General Information source: Patient - Social History Smoking Status: Current Every Day Smoker Cigarette use (# per day): Yes Chew tobacco use (# tins/day): No Frequency of alcohol use: Heavy Drug Abuse: Marijuana Family History: Reviewed & Not Pertinent Patient has suicidal ideation: No Patient has homicidal ideation: No Psychiatric Medical History: Reports: Hx Schizophrenia Past Surgical History: Reports: Hx Appendectomy - Immunizations Immunizations up to date: Yes Hx Diphtheria, Pertussis, Tetanus Vaccination: Yes Review of Systems - Review of Systems Constitutional: See HPI. denies: Chills, Fever EENT: No symptoms reported Cardiovascular: No symptoms reported Respiratory: No symptoms reported Gastrointestinal: See HPI, Vomiting, Blood in vomit Genitourinary: No symptoms reported Male Genitourinary: No symptoms reported Musculoskeletal: No symptoms reported Skin: No symptoms reported Hematologic/Lymphatic: No symptoms reported Neurological/Psychological: See HPI, Headaches -: Yes All other systems reviewed and negative Physical Exam - Vital signs Vitals: Temp Pulse Resp BP Pulse Ox 98.7 F 121 H 20 120/100 H 98 04/03/19 17:31 04/03/19 17:31 04/03/19 17:31 04/03/19 17:31 04/03/19 17:31 - Notes Notes: Physical Exam: General: Alert, appears intoxicated. HEENT: Normocephalic. Atraumatic. PERRL. Extraocular movements intact. Oropharynx clear. Odor from alcohol on breath. Neck: Supple. Non-tender. Respiratory: No respiratory distress. Clear and equal breath sounds bilaterally. Cardiovascular: Regular rate and rhythm. Abdominal: Normal Inspection. Non-tender. No distension. Normal Bowel Sounds. Back: No gross abnormalities. Extremities: Moves all four extremities. Upper extremities: Normal inspection. Normal ROM. Lower extremities: Normal inspection. No edema. Normal ROM. Skin: Warm. Dry. Normal color. Course - Re-evaluation Re-evalutation: 04/04/19 05:28 Patient still complains of epigastric pain. No surgical abdomen at this time. More guarding in the right upper quadrant epigastric region. No rebound tenderness. 04/04/19 05:39 Discussed with hospitalist regarding admitting patient to hospital with acute alcohol intoxication epigastric pain elevated lipase and elevated lactic acid and alcohol level over 300 on arrival. Hospitalist decided the patient most l johnely will improve with further hydration regarding his lactic acid and that patient can be followed up as an outpatient. Currently patient is not medically cleared with pending labs of lipase and la ctic acid. Consult into Dr. Sylvester Gillespie regarding mental health and alcohol detox once medically stable. - Vital Signs Vital signs: Temp Pulse Resp BP Pulse Ox 97.7 F 121 H 21 H 147/77 H 99 04/04/19 05:09 04/03/19 17:31 04/04/19 05:01 04/04/19 05:01 04/04/19 05:01 - Laboratory Result Diagrams: 04/03/19 18:15 04/03/19 18:15 Laboratory results interpreted by me: 04/03/19 04/03/19 04/03/19 18:15 18:15 18:15 Glucose 145 H Lactic Acid Calcium 8.1 L ALT 55 H Lipase 349.7 H Urine Protein 100 H Urine Blood MODERATE H Salicylates 1.0 L Acetaminophen < 10 L 04/03/19 04/04/19 04/04/19 23:35 00:46 04:20 Glucose Lactic Acid 2.9 H 2.6 H Calcium ALT Lipase Urine Protein Urine Blood SMALL H Salicylates Acetaminophen Discharge - Discharge Clinical Impression: Acute alcoholic intoxication in alcoholism, Acute pancreatitis Condition: Good Disposition: PSYCH HOSP/UNIT Additional Instructions: Pancreatitis Pancreatitis is an inflammation of the pancreas, an organ at the back of your abdomen. The pancreas produces insulin and enzymes that digest your food. Pancreatitis can be caused by gallstones in the bile duct, by alcohol or viruses, or by excess fat or calcium in the blood stream. Occasionally, mathis creatitis occurs when a stomach ulcer wood through into the pancreas. We try to find the cause of pancreatitis, but some tests can't be done until the pancreas heals. The usual symptoms of pancreatitis are pain in the pit of the stomach that goes straight through to the back, vomiting, and low-grade fever. Severe cases require hospital admission, but many patients with mild pancreatitis do well at home. You will probably need medicine for pain and for vomiting. Sometimes we prescribe medicine to decrease stomach acid secretion and to decrease flow of pancreatic juices. Start with a diet of clear liquids (soda pop, juices). When the pain is decreasing, you can add some simple starches (potato, toast, applesauce). Avoid proteins and fats until you are completely painfree. When you're better, your doctor may suggest treatment to prevent future pancreatitis (such as gallbladder removal). Avoid alcohol forever. Get immediate treatment for any future episodes. Contact your doctor at once or return here if you have increasing pain, shortness of breath, general swelling, increasing size of the abdomen, continued vomiting, muscle spasms, or other new symptoms.Acute Alcohol Intoxication Your evaluation revealed very high levels of alcohol. You can from drinking a large amount of alcohol rapidly! Further, there's the risk of falls, traffic accidents, and fights. A high portion (about 50 percent) of the serious injuries seen in hospital emergency rooms are caused by alcohol. Alcohol overdosage is usually due to an underlying emotional or psychiatric problem. You may benefit from counselling. If "binge" drinking is an ongoing problem for you, or if you drink ANY AMOUNT of alcohol EVERY day, you most likely have a tendency to alcoholism. You should avoid alcohol totally. We can refer you for treatment. Persons with alcohol problems are often also prone to other addictions -- you should discuss any use of medications or drugs with the doctor. You should be watched at home for the next several hours by someone who has not been drinking. Get extra fluids for the next 24 hours. Call the doctor if there is repeated vomiting, increasing headache, decreasing level of alertness, or any other worsening. Alcohol Withdrawal Your symptoms are caused by alcohol withdrawal. After a period of frequent drinking, the brain and body are changed by the alcohol. When you quit or reduce your drinking, the nervous system becomes unstable. Withdrawal symptoms can start a few hours after your last drink, but sometimes don't begin until a couple of days later. Symptoms can include shakiness, sweating, insomnia, nausea, vomiting, fearfulness, hallucinations, and seizures. In addition to the acute effects of alcohol withdrawal, we often have to deal with the medical effects of alcoholism. These problems often include dehydration, stomach irritation, intestinal bleeding, low blood sugar, liver disease, and pancreas inflammation. Treatment for alcohol withdrawal includes mild sedatives, vitamins, and fluids. You need to be with someone who can help if symptoms become severe. Many patients can withdraw at home. Admission to the hospital or a detox facility may be necessary if withdrawal symptoms are severe and uncontrollable. Abstaining from alcohol is the only effective long-term treatment. If you start drinking again, you will not be able to control yourself after the first drink. Treatment programs are available. In addition, many alcoholics benefit from Alcoholics Anonymous or other support groups available through your counselor or shinto parks and recreation worker. AL-ANON and ALA-TEEN are support groups for friends and family members of an alcoholic. Go to the emergency room if you develop persistent vomiting, severe abdominal pain, fever, shortness of breath, hallucinations, uncontrollable tremors, or seizures. Prescriptions: Lorazepam 2 mg PO QID PRN #14 tablet PRN Reason: agitation Famotidine [Pepcid 20 mg Tablet] 20 mg PO DAILY #20 tablet I personally performed the services described in the documentation, reviewed and edited the documentation which was dictated to the scribe in my presence, and it accurately records my words and actions.
--- NOTE | 2019-04-04 09:50 | PSYCHOLOGICAL NOTE ---
Psych Note - Psych Note Date seen by psych provider: 04/04/19 Time seen by psych provider: 09:00 Psych Note: Reason for consult: Detox with [facility] Patient confirms he attempted to go to [facility] however was sent to [facility] ED. He confirms he still would like to return to [facility] for detox. He denies any thoughts of wanting to harm himself or others. He denies any concerns with seeing or hearing things that confused or scare him. Clinician contacted [facility]. They report they have no information in regards to this patient. It is unclear if the evening staff sent the patient over because his EtOH was over 200 or if the patient or if the patient never went to [facility] and is just asking to go. They confirm they have bed availability and will hold a bed until 1130 for him. Impression\plan: Patient already has discharge paperwork on chart. Consult was requested for assistance in detox with [facility]. [facility] confirm they have bed availability. Patient is encouraged to follow through with this voluntary placement for his detox. Patient was provided local resource list of area providers which include additional detox facilities and mobile crisis contact information. Dr. Gillespie was consulted to care management of this patient; any physicians in agreement with recommendations and disposition.
[2019-04-04] MEDS ORDERED: LIDOCAINE 2% VISCOUS SOLN 15 ML UDCUP PO ONE (10:03)
[2019-04-04] MEDS ORDERED: MAG HYDROX/AL HYDROX/SIMETH SUSP 30 ML UDCUP PO ONE (10:03)
[2019-04-04] MEDS ORDERED: METOCLOPRAMIDE HCL ORAL SOLN 10 MG/10 ML UDCUP PO ONE (10:03)
--- NOTE | 2019-04-04 10:53 | ER Document Report ---
Doctor's Note Notes: 04/04/19 10:52 Patient has been examined multiple times by me this morning. I assumed care at approximate 7 AM. Patient continues to have abdominal pain vomiting and diarrhea this morning. I have tried GI cocktails. He has had approximate 4 L of fluid. He has had Zofran and Reglan. However symptoms persist. His lactate continues to remain elevated. I am going obtain an ultrasound of the right upper quadrant and I have discussed admission with the hospitalist.
[2019-04-04] MEDS ORDERED: ACETAMINOPHEN 650 MG SUPP.RECT PR PRN (11:51)
[2019-04-04] MEDS ORDERED: LOPERAMIDE HCL 2 MG CAPSULE PO PRN (11:51)
--- NOTE | 2019-04-04 12:19 | RADIOLOGY REPORT (SQ) ---
EXAM DESCRIPTION: U/S ABDOMEN LIMITED W/O DOP COMPLETED DATE/TIME: 04/04/2019 11:59 am REASON FOR STUDY: ruq COMPARISON: CT abdomen pelvis 04/04/2019 TECHNIQUE: Dynamic and static grayscale images acquired of the abdomen and recorded on PACS. Additio nal selected color Doppler and spectral images recorded. LIMITATIONS: Upper abdominal bowel gas FINDINGS: PANCREAS: Midline pancreas unremarkable LIVER: No masses. Echotexture normal. LIVER VASCULATURE: Normal directional flow of the main portal vein and hepatic veins. GALLBLADDER: No stones. Normal wall thickness. No pericholecystic fluid. ULTRASOUND-DETECTED CHANEL'S SIGN: Negative. INTRAHEPATIC DUCTS AND COMMON DUCT: CBD and intrahepatic ducts normal caliber. No filling defects. D istal common duct not well seen due to duodenum gas. INFERIOR VENA CAVA: Normal flow. AORTA: No aneurysm. RIGHT KIDNEY: Normal size. Normal echogenicity. No solid or suspicious masses. No hydronephrosis. No calcifications. PERITONEAL AND RIGHT PLEURAL SPACE: No ascites or effusions. OTHER: No other significant findings. IMPRESSION: No gallstones, gallbladder wall thickening or pericholecystic fluid. TECHNICAL DOCUMENTATION: JOB ID: [id number] [email or web address]- All Rights Reserved Reading location - IP/workstation name: [email or web address]
--- NOTE | 2019-04-04 12:22 | PDOC H&P ---
History of Present Illness Admission Date/PCP: 04/04/19 11:19 Patient complains of: Acute alcohol intoxication, pancreatitis, lactic acidemia, nausea, vomiting and diarrhea History of Present Illness: ALBINO GARCIA is a 28 year old male with a history of alcoholism. He presented with acute alcohol intoxication. He is requesting detox. Unfortunately his lactic acid remains elevated. He also is still having profuse diarrhea with some nausea and vomiting. The diarrhea tends to be incontinent most of the time. The patient states that he has been having the diarrhea for the last 2 days. He has a bowel movement approximately 3-4 times a day although his recollection is somewhat unreliable. His abdomen is slightly tender possibly from the recurrent vomiting and diarrhea. The patient did have a bed at detox however because of his ongoing elevated lactic acid as well as significant diarrhea I am going to admit him to observation status. He will get aggressive IV fluids and antidiarrheal medication. His Gastroccult was positive as well and he may likely have alcohol related gastritis and so we will be aggressive with proton pump inhibitors and Carafate. His hemoglobin is stable at this time. Past Medical History Psychiatric Medical History: Reports: Alcohol Dependency Past Surgical History Past Surgical History: Reports: Appendectomy Social History Information Source: Patient Lives with: Alone Smoking Status: Current Every Day Smoker Electronic Cigarette use?: No Frequency of Alcohol Use: Heavy Hx Recreational Drug Use: Yes Drugs: Other - Barbiturates screened positive Hx Prescription Drug Abuse: No - Advance Directive Resuscitation Status: Full Code Family History Family History: Other Parental Family History Reviewed: No Children Family History Reviewed: No Sibling(s) Family History Reviewed.: No Medication/Allergy Home Medications: Famotidine [Pepcid 40 mg Tablet] 40 mg PO DAILY #20 tablet 02/17/19 Sulfamethoxazole/Trimethoprim [Bactrim Ds Tablet] 1 each PO BID 7 Days #14 tablet 03/29/19 Hydrocodone/Acetaminophen [Cairo 5-325 mg Tablet] 1 tab PO Q6HP PRN 04/04/19 Ondansetron [Zofran Odt 4 mg Tablet] 1 tab PO Q6HP PRN 04/04/19 Allergies/Adverse Reactions: No Known Allergies Allergy (Unverified 04/04/19 20:30) Review of Systems All systems: reviewed and no additional remarkable complaints except as stated Gastrointestinal: PRESENT: abdominal pain, diarrhea, nausea, vomiting Physical Exam Vital Signs: Temp Pulse Resp BP Pulse Ox 97.7 F 121 H 24 H 132/66 H 99 04/04/19 05:09 04/03/19 17:31 04/04/19 10:01 04/04/19 10:01 04/04/19 10:01 Intake & Output 04/03/19 04/04/19 04/05/19 06:59 06:59 06:59 Intake Total 2022 1000 Output Total 2750 Balance -727 1000 Weight 81.6 kg General appearance: PRESENT: cooperative, mild distress, well-developed Head exam: PRESENT: atraumatic, normocephalic Eye exam: PRESENT: conjunctiva pink, EOMI. ABSENT: scleral icterus Ear exam: PRESENT: normal external ear exam. ABSENT: bleeding, drainage Mouth exam: PRESENT: moist, tongue midline Respiratory exam: PRESENT: clear to auscultation carmelita, symmetrical, unlabored. ABSENT: accessory muscle use, prolonged expiratory phas, rales, rhonchi, tachypnea, wheezes Cardiovascular exam: PRESENT: RRR, +S1, +S2. ABSENT: diastolic murmur, systolic murmur GI/Abdominal exam: PRESENT: normal bowel sounds, soft, tenderness - Mild diffuse tenderness, other - Gastroccult positive. ABSENT: distended, guarding, mass Rectal exam: PRESENT: deferred Gentrourinary exam: ABSENT: indwelling catheter Extremities exam: ABSENT: calf tenderness, pedal edema Musculoskeletal exam: PRESENT: normal inspection. ABSENT: deformity Neurological exam: PRESENT: alert, awake, oriented to person, oriented to place, oriented to situation, CN II-XII grossly intact Psychiatric exam: PRESENT: flat affect. ABSENT: agitated, anxious Focused psych exam: ABSENT: delusional, restlessness Skin exam: PRESENT: dry, normal color, warm. ABSENT: rash Results Laboratory Results: 04/03/19 18:15 04/03/19 18:15 04/03/19 04/03/19 04/03/19 18:15 18:15 18:15 WBC 7.7 RBC 4.85 Hgb 15.7 Hct 44.3 MCV 91 MCH 32.4 MCHC 35.5 RDW 13.1 Plt Count 243 Seg Neutrophils % 67.7 Sodium 139.2 Potassium 4.0 Chloride 99 Carbon Dioxide 30 Anion Gap 10 BUN 8 Creatinine 0.66 Est GFR ( Amer) > 60 Glucose 145 H Lactic Acid Calcium 8.1 L Magnesium Total Bilirubin 0.5 AST 55 Alkaline Phosphatase 74 Total Protein 6.8 Albumin 4.1 Lipase Urine Color YELLOW Urine Appearance CLEAR Urine pH 6.0 Ur Specific Henderson 1.012 Urine Protein 100 H Urine Glucose (UA) NEGATIVE Urine Ketones NEGATIVE Urine Blood MODERATE H Urine Nitrite NEGATIVE Ur Leukocyte Esterase NEGATIVE Urine WBC (Auto) 2 Urine RBC (Auto) 3 04/03/19 04/03/19 04/04/19 18:15 23:35 00:46 WBC RBC Hgb Hct MCV MCH MCHC RDW Plt Count Seg Neutrophils % Sodium Potassium Chloride Carbon Dioxide Anion Gap BUN Creatinine Est GFR ( Amer) Glucose Lactic Acid 2.9 H Calcium Magnesium 2.3 Total Bilirubin AST Alkaline Phosphatase Total Protein Albumin Lipase 349.7 H Urine Color STRAW Urine Appearance CLEAR Urine pH 8.0 Ur Specific Henderson 1.006 Urine Protein NEGATIVE Urine Glucose (UA) NEGATIVE Urine Ketones NEGATIVE Urine Blood SMALL H Urine Nitrite NEGATIVE Ur Leukocyte Esterase NEGATIVE Urine WBC (Auto) 2 Urine RBC (Auto) 2 04/04/19 04/04/19 04/04/19 04:20 08:40 08:55 WBC RBC Hgb Hct MCV MCH MCHC RDW Plt Count Seg Neutrophils % Sodium Potassium Chloride Carbon Dioxide Anion Gap BUN Creatinine Est GFR ( Amer) Glucose Lactic Acid 2.6 H 2.3 H Calcium Magnesium Total Bilirubin AST Alkaline Phosphatase Total Protein Albumin Lipase 281.2 Urine Color Urine Appearance Urine pH Ur Specific Henderson Urine Protein Urine Glucose (UA) Urine Ketones Urine Blood Urine Nitrite Ur Leukocyte Esterase Urine WBC (Auto) Urine RBC (Auto) Impressions: Chest X-Ray 04/03/19 21:39 IMPRESSION: Lungs grossly clear copyright 2011 [email or web address]- All Rights Reserved Abdomen/Pelvis CT 04/04/19 00:22 IMPRESSION: Hepatic steatosis. Moderate thickening of the distal esophagus which could be due to esophagitis. Assessment and Plan - Diagnosis (1) Acute pancreatitis Qualifiers: Pancreatitis type: alcohol induced Acute pancreatitis complication: no infection or necrosis Qualified Code(s): K85.20 - Alcohol induced acute pancreatitis without necrosis or infection Is this a current diagnosis for this admission?: Yes (2) Acute alcoholic intoxication in alcoholism Qualifiers: Complication of substance-induced condition: with unspecified complication Qualified Code(s): F10.229 - Alcohol dependence with intoxication, unspecified Is this a current diagnosis for this admission?: Yes (3) Alcoholic gastritis Qualifiers: Gastritis bleeding: presence of bleeding unspecified Is this a current diagnosis for this admission?: Yes Plan: Patient likely has alcohol-related gastritis with Hemoccult positive testing. It could also be Celine-Davenport tear. He was on Carafate and proton pump inhibitors prior to admission and this would more likely be consistent with alcohol related gastritis. Will monitor hemoglobin and hematocrit. We will continue proton pump inhibitors and Carafate. (4) Lactic acidemia Is this a current diagnosis for this admission?: Yes (5) Nausea vomiting and diarrhea Is this a current diagnosis for this admission?: Yes (6) Abdominal pain Is this a current diagnosis for this admission?: Yes - Plan Summary Summary: Acute alcohol intoxication with alcoholism-the patient reported to the emergency department wishing detox. He has a bed at [facility]. He is unable to transfer today due to the ongoing ongoing nausea, vomiting and diarrhea as well as his lactic acidemia. We will have benzodiazepine therapy available and will receive a banana bag daily. I expect transfer to the [facility] tomorrow. Acute pancreatitis-the patient had minimally elevated lipase. With aggressive fluids his lipase normalized by the time of admission. Cryptitis is related to his alcoholism. Abdominal pain with nausea vomiting and diarrhea-the patient is Gastroccult positive. This is likely due to the recurrent vomiting. I did discuss the case with psychiatry and he has been observed putting his finger in his throat to induce vomiting. With this in mind a small Celine-Davenport tear makes sense. He certainly could have alcohol-related gastritis as well. Review of his suppose at home medications reveals that he is supposed to be taking Pepcid regularly. His mildly elevated lipase certainly could contribute to abdominal discomfort however the lipase had normalized by the time of admission and the abdominal pain is more likely a combination of the vomiting and diarrhea as well as prob able gastritis. Alcohol-related gastritis-review of the patient's home medications medications (scheduled famotidine) as well as the gastrocolic positive test result makes alcohol-related gastritis a very likely possibility. As noted above he certainly could also have irritation from the vomiting. I could not find evidence of a history of esophageal varices in his records. Lactic acidemia-there is no indication of infection. The patient's lactic acidemia is likely the physiologic stress of his combination of comorbidities. I will continue aggressive IV fluids including a banana bag daily and monitor his lactic acid levels. I do not believe this is sepsis. - Time Time Spent with patient: 35 or more minutes Medications reviewed and adjusted accordingly: Yes Anticipated discharge: Other - Rehab facility Within: within 24 hours
[2019-04-04] MEDS: NORMAL SALINE 1000 ML 1,000 ML IV PRN (14:49)
[2019-04-04] MEDS ORDERED: INFLUENZA QUAD (6MOS+) 2019-20 VAC 0.5 ML SYR IM ONE (15:16)
[2019-04-04] MEDS: ACETAMINOPHEN 325 MG TABLET PO PRN (15:31)
[2019-04-04] MEDS: LORAZEPAM 1 MG TABLET PO PRN ×2 (15:32→22:27)
[2019-04-04] MEDS: PROMETHAZINE HCL 25 MG TABLET PO PRN (15:32)
[2019-04-04] MEDS: SUCRALFATE 1 GM TABLET PO SCH ×2 (18:21→22:27)
[2019-04-04] MEDS: PANTOPRAZOLE SODIUM 40 MG TABLET.DR PO SCH (18:21)
[2019-04-04] MEDS: NORMAL SALINE 1000 ML 1,000 ML with POTASSIUM CHLORIDE 20 MEQ, MAGNESIUM SULFATE 8 MEQ,... IV SCH ×5 (19:42)
[2019-04-05] MEDS: LORAZEPAM 1 MG TABLET PO PRN ×5 (01:06→21:05)
[2019-04-05 05:42] LABS: ANION GAP 9 (5-19); BLOOD UREA NITROGEN 9 mg/dL (7-20); CALCIUM 8.3 mg/dL (8.4-10.2); CARBON DIOXIDE 22 mmol/L (22-30); CHLORIDE 102 mmol/L (98-107); GLUCOSE 88 mg/dL (75-110); POTASSIUM 3.9 mmol/L (3.6-5.0)
[2019-04-05] MEDS: PANTOPRAZOLE SODIUM 40 MG TABLET.DR PO SCH ×2 (05:47→17:13)
[2019-04-05] MEDS: SUCRALFATE 1 GM TABLET PO SCH ×4 (08:10→21:05)
[2019-04-05] MEDS: ACETAMINOPHEN 325 MG TABLET PO PRN ×2 (08:30→17:13)
[2019-04-05] MEDS: PROMETHAZINE HCL 25 MG TABLET PO PRN ×4 (08:30→17:13)
[2019-04-05] MEDS: NORMAL SALINE 1000 ML 1,000 ML IV PRN ×2 (12:25→21:58)
[2019-04-05] MEDS: NORMAL SALINE 1000 ML 1,000 ML with POTASSIUM CHLORIDE 20 MEQ, MAGNESIUM SULFATE 8 MEQ,... IV SCH ×5 (17:12)
[2019-04-05] MEDS ORDERED: PHENOL/SODIUM PHENOLATE 100 SPRAY/177 ML BOTTLE PO PRN (17:46)
--- NOTE | 2019-04-05 22:00 | PDOC PROGRESS REPORT ---
Subjective Progress Note for:: 04/05/19 Subjective:: The diarrhea has subsided. The patient still complains of poor appetite and now reports a very sore throat with discomfort when swallowing. Reason For Visit: ACUTE ALCOHOLIC INTOXICATION, PANCREATITIS, Physical Exam Vital Signs: Temp Pulse Resp BP Pulse Ox 98.4 F 71 18 149/81 H 100 04/05/19 20:22 04/05/19 20:22 04/05/19 20:22 04/05/19 20:22 04/05/19 20:22 Intake & Output 04/04/19 04/05/19 04/06/19 06:59 06:59 06:59 Intake Total 3 7073 3746 Output Total 2750 200 Balance -727 6873 3746 Weight 81.6 kg 83.5 kg 83.5 kg General appearance: PRESENT: cooperative, mild distress, well-developed Head exam: PRESENT: atraumatic, normocephalic Eye exam: PRESENT: conjunctiva pink. ABSENT: scleral icterus Ear exam: PRESENT: normal external ear exam. ABSENT: bleeding, drainage Mouth exam: PRESENT: moist, neck supple, tongue midline Throat exam: PRESENT: post pharyngeal erythema - Minimal erythema especially around the uvula, other - No white patches or other lesions noted Neck exam: ABSENT: lymphadenopathy Respiratory exam: PRESENT: clear to auscultation carmelita, symmetrical, unlabored. ABSENT: accessory muscle use, rales, rhonchi, tachypnea, wheezes Cardiovascular exam: PRESENT: RRR, +S1, +S2. ABSENT: diastolic murmur, systolic murmur, tachycardia GI/Abdominal exam: PRESENT: normal bowel sounds, soft. ABSENT: distended, guarding, tenderness Rectal exam: PRESENT: deferred Gentrourinary exam: ABSENT: testicular tenderness Extremities exam: ABSENT: pedal edema Musculoskeletal exam: PRESENT: ambulatory, normal inspection. ABSENT: deformity Neurological exam: PRESENT: alert, awake, oriented to person, oriented to place, oriented to time, oriented to situation, CN II-XII grossly intact Psychiatric exam: PRESENT: flat affect. ABSENT: agitated, anxious Results Laboratory Results: 04/03/19 18:15 04/05/19 05:10 04/04/19 04/05/19 04/05/19 23:36 05:10 06:41 Sodium 132.9 L Potassium 3.9 Chloride 102 Carbon Dioxide 22 Anion Gap 9 BUN 9 Creatinine 0.52 Est GFR ( Amer) > 60 Glucose 88 Lactic Acid 2.2 H 1.4 Calcium 8.3 L Lipase 326.9 H Impressions: Chest X-Ray 04/03/19 21:39 IMPRESSION: Lungs grossly clear copyright 2011 [employer] [facility] [employer]- All Rights Reserved Abdomen/Pelvis CT 04/04/19 00:22 IMPRESSION: Hepatic steatosis. Moderate thickening of the distal esophagus which could be due to esophagitis. Abdomen Ultrasound 04/04/19 10:48 IMPRESSION: No gallstones, gallbladder wall thickening or pericholecystic fluid. Assessment and Plan - Diagnosis (1) Acute pancreatitis Qualifiers: Pancreatitis type: alcohol induced Acute pancreatitis complication: no infection or necrosis Qualified Code(s): K85.20 - Alcohol induced acute pancreatitis without necrosis or infection Is this a current diagnosis for this admission?: Yes (2) Acute alcoholic intoxication in alcoholism Qualifiers: Complication of substance-induced condition: with unspecified complication Qualified Code(s): F10.229 - Alcohol dependence with intoxication, unspecified Is this a current diagnosis for this admission?: Yes (3) Alcoholic gastritis Qualifiers: Gastritis bleeding: presence of bleeding unspecified Is this a current diagnosis for this admission?: Yes (4) Lactic acidemia Is this a current diagnosis for this admission?: Yes (5) Nausea vomiting and diarrhea Is this a current diagnosis for this admission?: Yes (6) Abdominal pain Is this a current diagnosis for this admission?: Yes (7) Acute sore throat Is this a current diagnosis for this admission?: Yes - Plan Summary Summary: 04/04/2019 Acute alcohol intoxication with alcoholism-the patient reported to the emergency department wishing detox. He has a bed at [facility]. He is unable to transfer today due to the ongoing ongoing nausea, vomiting and diarrhea as well as his lactic acidemia. We will have benzodiazepine therapy available and will receive a banana bag daily. I expect transfer to the [facility] tomorrow. Acute pancreatitis-the patient had minimally elevated lipase. With aggressive fluids his lipase normalized by the time of admission. Cryptitis is related to his alcoholism. Abdominal pain with nausea vomiting and diarrhea-the patient is Gastroccult positive. This is likely due to the recurrent vomiting. I did discuss the case with psychiatry and he has been observed putting his finger in his throat to induce vomiting. With this in mind a small Celine-Davenport tear makes sense. He certainly could have alcohol-related gastritis as well. Review of his suppose at home medications reveals that he is supposed to be taking Pepcid regularly. His mildly elevated lipase certainly could contribute to abdominal discomfort however the lipase had normalized by the time of admission and the abdominal pain is more likely a combination of the vomiting and diarrhea as well as probable gastritis. Alcohol-related gastritis-review of the patient's home medications medications (scheduled famotidine) as well as the gastrocolic positive test result makes alcohol-related gastritis a very likely possibility. As noted above he certainly could also have irritation from the vomiting. I could not find evidence of a history of esophageal varices in his records. Lactic acidemia-there is no indication of infection. The patient's lactic acidemia is likely the physiologic stress of his combination of comorbidities. I will continue aggressive IV fluids including a banana bag daily and monitor his lactic acid levels. I do not believe this is sepsis. 04/05/2019 No evidence of withdrawals at this time. He is complaining of a sore throat with discomfort when swallowing. I have ordered Chloraseptic spray. By exam there is not appear to be evidence of infection and this is much more likely due to the vomiting. I did order a rapid strep test as a precaution. The patient's lipase is up slightly but I do not believe that this is clinically significant. His diarrhea has improved significantly and his lactic acidemia has finally resolved. If the rapid strep test is negative then I will discharge him tomorrow and he could proceed to [facility]. - Time Time Spent with patient: 15-24 minutes Medications reviewed and adjusted accordingly: Yes Anticipated discharge: Other - [facility] Within: within 24 hours
[2019-04-05] MEDS: PROMETHAZINE HCL INJ 25 MG/1 ML VIAL IV PRN (23:52)
[2019-04-06] MEDS: LORAZEPAM 1 MG TABLET PO PRN ×2 (01:05→06:33)
[2019-04-06] MEDS: PANTOPRAZOLE SODIUM 40 MG TABLET.DR PO SCH (06:34)
[2019-04-06] MEDS: NORMAL SALINE 1000 ML 1,000 ML IV PRN (06:35)
[2019-04-06] MEDS: PROMETHAZINE HCL INJ 25 MG/1 ML VIAL IV PRN (07:53)
[2019-04-06] MEDS: SUCRALFATE 1 GM TABLET PO SCH ×2 (08:44→12:06)
[2019-04-06] MEDS ORDERED: LORAZEPAM 1 MG TABLET PO PRN (11:24)
--- NOTE | 2019-04-06 13:29 | PDOC DISCHARGE SUMMARY ---
Impression - Admit/DC Date/PCP Admission Date/Primary Care Provider: 04/04/19 11:19 Discharge Date: 04/06/19 - Discharge Diagnosis (1) Acute pancreatitis Is this a current diagnosis for this admission?: Yes (2) Acute alcoholic intoxication in alcoholism Is this a current diagnosis for this admission?: Yes (3) Alcoholic gastritis Is this a current diagnosis for this admission?: Yes (4) Lactic acidemia Is this a current diagnosis for this admission?: Yes (5) Nausea vomiting and diarrhea Is this a current diagnosis for this admission?: Yes (6) Abdominal pain Is this a current diagnosis for this admission?: Yes (7) Acute sore throat Is this a current diagnosis for this admission?: Yes - Assessment Summary: 04/04/2019 Acute alcohol intoxication with alcoholism-the patient reported to the emergency department wishing detox. He has a bed at [facility]. He is unable to transfer today due to the ongoing ongoing nausea, vomiting and diarrhea as well as his lactic acidemia. We will have benzodiazepine therapy available and will receive a banana bag daily. I expect transfer to the [facility] tomorrow. Acute pancreatitis-the patient had minimally elevated lipase. With aggressive fluids his lipase normalized by the time of admission. Cryptitis is related to his alcoholism. Abdominal pain with nausea vomiting and diarrhea-the patient is Gastroccult positive. This is likely due to the recurrent vomiting. I did discuss the case with psychiatry and he has been observed putting his finger in his throat to induce vomiting. With this in mind a small [place] tear makes sense. He certainly could have alcohol-related gastritis as well. Review of his suppose at home medications reveals that he is supposed to be taking Pepcid regularly. His mildly elevated lipase certainly could contribute to abdominal discomfort however the lipase had normalized by the time of admission and the abdominal pain is more likely a combination of the vomiting and diarrhea as well as probable gastritis. Alcohol-related gastritis-review of the patient's home medications medications (scheduled famotidine) as well as the gastrocolic positive test result makes alcohol-related gastritis a very likely possibility. As noted above he certainly could also have irritation from the vomiting. I could not find evidence of a history of esophageal varices in his records. Lactic acidemia-there is no indication of infection. The patient's lactic acidemia is likely the physiologic stress of his combination of comorbidities. I will continue aggressive IV fluids including a banana bag daily and monitor his lactic acid levels. I do not believe this is sepsis. 04/05/2019 No evidence of withdrawals at this time. He is complaining of a sore throat with discomfort when swallowing. I have ordered Chloraseptic spray. By exam there is not appear to be evidence of infection and this is much more likely due to the vomiting. I did order a rapid strep test as a precaution. The patient's lipase is up slightly but I do not believe that this is clinically significant. His diarrhea has improved significantly and his lactic acidemia has finally resolved. If the rapid strep test is negative then I will discharge him tomorrow and he could proceed to [facility]. 04/06/2019 The patient is anxious for discharge today. He has exhibited no alcohol withdrawal symptoms. His sore throat is improved. He has no more diarrhea and he is tolerating an oral diet. - Additional Information Resuscitation Status: Full Code Discharge Diet: Other (Comments) - Caffeine, low acid Discharge Activity: Activity As Tolerated Referrals: [facility] [Outside] (THE OFFICE IS CLOSED - PLEASE CALL TO OBTAIN THE DATE AND TIME OF YOUR APPOINTMENT) Prescriptions: Sucralfate [Carafate 1 gm Tablet] 1 gm PO ACHS #120 tablet Potassium Chloride 20 meq PO DAILY 10 Days #10 tablet.er Pantoprazole Sodium [Protonix [address] Tablet] 40 mg PO DAILY #30 tablet.dr Home Medications: Pantoprazole Sodium [Protonix [address] Tablet] 40 mg PO DAILY #30 tablet.dr 04/06/19 Phenol/Sodium Phenolate [Chloraseptic Sore Throat Steele 177 ml] 4 spray PO PRN PRN bottle 04/06/19 Potassium Chloride 20 meq PO DAILY 10 Days #10 tablet.er 04/06/19 Sucralfate [Carafate 1 gm Tablet] 1 gm PO ACHS #120 tablet 04/06/19 History of Present Illiness History of Present Illness: ALBINO GARCIA is a 28 year old male with a history of alcoholism. He presented with acute alcohol intoxication. He is requesting detox. Unfortunately his lactic acid remains elevated. He also is still having profuse diarrhea with some nausea and vomiting. The diarrhea tends to be incontinent most of the time. The patient states that he has been having the diarrhea for the last 2 days. He has a bowel movement approximately 3-4 times a day although his recollection is somewhat unreliable. His abdomen is slightly tender possibly from the recurrent vomiting and diarrhea. The patient did have a bed at detox however because of his ongoing elevated lactic acid as well as significant diarrhea I am going to admit him to observation status. He will get aggressive IV fluids and antidiarrheal medication. His Gastroccult was positive as well and he may likely have alcohol related gastritis and so we will be aggressive with proton pump inhibitors and Carafate. His hemoglobin is stable at this time. Hospital Course Hospital Course: See details above Physical Exam Vital Signs: Temp Pulse Resp BP Pulse Ox 98.1 F 67 16 144/78 H 100 04/06/19 11:02 04/06/19 11:02 04/06/19 11:02 04/06/19 11:02 04/06/19 11:02 Intake & Output 04/05/19 04/06/19 04/07/19 06:59 06:59 06:59 Intake Total 7073 6341 986 Output Total 200 Balance 6873 6341 986 Weight 83.5 kg 83.6 kg General appearance: PRESENT: no acute distress Respiratory exam: PRESENT: clear to auscultation carmelita, symmetrical, unlabored. ABSENT: rales, rhonchi, tachypnea, wheezes Cardiovascular exam: PRESENT: RRR, +S1, +S2 GI/Abdominal exam: PRESENT: normal bowel sounds, soft. ABSENT: distended, guarding, tenderness Rectal exam: PRESENT: deferred Gentrourinary exam: ABSENT: indwelling catheter Extremities exam: PRESENT: full ROM. ABSENT: pedal edema Musculoskeletal exam: PRESENT: ambulatory, normal inspection. ABSENT: deformity Neurological exam: PRESENT: alert, awake, oriented to person, oriented to place, oriented to time, oriented to situation, CN II-XII grossly intact Psychiatric exam: PRESENT: flat affect. ABSENT: agitated, anxious Focused psych exam: ABSENT: delusional, restlessness Results Laboratory Results: WBC 7.7 10^3/uL (4.0-10.5) 04/03/19 18:15 RBC 4.85 10^6/uL (4.35-5.55) 04/03/19 18:15 Hgb 15.7 g/dL (13.5-17.0) 04/03/19 18:15 Hct 44.3 % (37.9-51.0) 04/03/19 18:15 MCV 91 fl (80-97) 04/03/19 18:15 MCH 32.4 pg (27.0-33.4) 04/03/19 18:15 MCHC 35.5 g/dL (32.0-36.0) 04/03/19 18:15 RDW 13.1 % (11.5-14.0) 04/03/19 18:15 Plt Count 243 10^3/uL (150-450) 04/03/19 18:15 Lymph % (Auto) 22.7 % (13-45) 04/03/19 18:15 Benton % (Auto) 9.0 % (3-13) 04/03/19 18:15 Eos % (Auto) 0.2 % (0-6) 04/03/19 18:15 Baso % (Auto) 0.4 % (0-2) 04/03/19 18:15 Absolute Neuts (auto) 5.2 10^3/uL (1.7-8.2) 04/03/19 18:15 Absolute Lymphs (auto) 1.7 10^3/uL (0.5-4.7) 04/03/19 18:15 Absolute Monos (auto) 0.7 10^3/uL (0.1-1.4) 04/03/19 18:15 Absolute Eos (auto) 0.0 10^3/uL (0.0-0.6) 04/03/19 18:15 Absolute Basos (auto) 0.0 10^3/uL (0.0-0.2) 04/03/19 18:15 Seg Neutrophils % 67.7 % (42-78) 04/03/19 18:15 Sodium 132.9 mmol/L (137-145) L 04/05/19 05:10 Potassium 3.9 mmol/L (3.6-5.0) 04/05/19 05:10 Chloride 102 mmol/L (98-107) 04/05/19 05:10 Carbon Dioxide 22 mmol/L (22-30) 04/05/19 05:10 Anion Gap 9 (5-19) 04/05/19 05:10 BUN 9 mg/dL (7-20) 04/05/19 05:10 Creatinine 0.52 mg/dL (0.52-1.25) 04/05/19 05:10 Est GFR ( Amer) > 60 (>60) 04/05/19 05:10 Est GFR (MDRD) Non-Af > 60 (>60) 04/05/19 05:10 Glucose 88 mg/dL (75-110) 04/05/19 05:10 Lactic Acid 1.4 mmol/L (0.7-2.1) 04/05/19 06:41 Calcium 8.3 mg/dL (8.4-10.2) L 04/05/19 05:10 Magnesium 2.3 mg/dL (1.6-2.3) 04/03/19 18:15 Total Bilirubin 0.5 mg/dL (0.2-1.3) 04/03/19 18:15 Direct Bilirubin 0.0 mg/dL (0.0-0.4) 04/03/19 18:15 Neonat Total Bilirubin Not Reportable 04/03/19 18:15 Neonat Direct Bilirubin Not Reportable 04/03/19 18:15 Neonat Indirect Bili Not Reportable 04/03/19 18:15 AST 55 U/L (17-59) 04/03/19 18:15 ALT 55 U/L (<50) H 04/03/19 18:15 Alkaline Phosphatase 74 U/L (38-126) 04/03/19 18:15 Total Protein 6.8 g/dL (6.3-8.2) 04/03/19 18:15 Albumin 4.1 g/dL (3.5-5.0) 04/03/19 18:15 Lipase 326.9 U/L (23-300) H 04/05/19 05:10 Urine Color STRAW 04/04/19 00:46 Urine Appearance CLEAR 04/04/19 00:46 Urine pH 8.0 (5.0-9.0) 04/04/19 00:46 Ur Specific [place] 1.006 04/04/19 00:46 Urine Protein NEGATIVE mg/dL (NEGATIVE) 04/04/19 00:46 Urine Glucose (UA) NEGATIVE mg/dL (NEGATIVE) 04/04/19 00:46 Urine Ketones NEGATIVE mg/dL (NEGATIVE) 04/04/19 00:46 Urine Blood SMALL (NEGATIVE) H 04/04/19 00:46 Urine Nitrite NEGATIVE (NEGATIVE) 04/04/19 00:46 Urine Bilirubin NEGATIVE (NEGATIVE) 04/04/19 00:46 Urine Urobilinogen NEGATIVE mg/dL (<2.0) 04/04/19 00:46 Ur Leukocyte Esterase NEGATIVE (NEGATIVE) 04/04/19 00:46 Urine WBC (Auto) 2 /HPF 04/04/19 00:46 Urine RBC (Auto) 2 /HPF 04/04/19 00:46 Squamous Epi Cells Auto <1 /HPF 04/03/19 18:15 Urine Mucus (Auto) RARE /LPF 04/04/19 00:46 Urine Ascorbic Acid NEGATIVE (NEGATIVE) 04/04/19 00:46 POC Gastric Occult Bld POSITIVE (NEGATIVE) 04/03/19 22:35 Salicylates 1.0 mg/dL (2.0-20.0) L 04/03/19 18:15 Urine Opiates Screen NEGATIVE 04/04/19 00:46 Urine Methadone Screen NEGATIVE 04/04/19 00:46 Acetaminophen < 10 ug/mL (10-30) L 04/03/19 18:15 Ur Barbiturates Screen UNCONFIRMED POSITIVE 04/04/19 00:46 Ur Phencyclidine Scrn NEGATIVE 04/04/19 00:46 Ur Amphetamines Screen NEGATIVE 04/04/19 00:46 U Benzodiazepines Scrn NEGATIVE 04/04/19 00:46 Urine Cocaine Screen NEGATIVE 04/04/19 00:46 U Marijuana (THC) Screen NEGATIVE 04/04/19 00:46 Serum Alcohol 182 mg/dL (NONE DETECTED) 04/04/19 00:28 Group A Strep Rapid NEGATIVE (NEGATIVE) 04/05/19 20:50 Impressions: Chest X-Ray 04/03/19 21:39 IMPRESSION: Lungs grossly clear copyright 2011 [employer] All Rights Reserved Abdomen/Pelvis CT 04/04/19 00:22 IMPRESSION: Hepatic steatosis. Moderate thickening of the distal esophagus which could be due to esophagitis. Abdomen Ultrasound 04/04/19 10:48 IMPRESSION: No gallstones, gallbladder wall thickening or pericholecystic fluid. Plan Health Concerns: Ongoing alcohol abuse Plan of Treatment: The patient was planning on going to [facility]. He will discharge on Carafate and Protonix. Because of his vomiting and diarrhea he will also be prescribed a short course of potassium chloride. Goals: Cessation of alcohol abuse Time Spent: Greater than 30 Minutes Stroke Is this a Stroke Patient?: No Acute Heart Failure - Is this a Heart Failure Patient?: No
[2019-04-06 13:35] VITALS: BP 137/52
[2019-04-06] MEDS ORDERED: NORMAL SALINE 1000 ML 1,000 ML with POTASSIUM CHLORIDE 20 MEQ, MAGNESIUM SULFATE 8 MEQ,... IV SCH ×5 (18:00)
== END 2019-04-06 15:14 | disposition home or self-care (01) ==
LOC: ER 17:08 → EH 04-04 11:19 → INTOOBSV 04-04 11:19 → 4S 04-04 14:40
PROVIDERS: ADMIT Hospitalist; ATTEND Hospitalist
DX: K85.20 Alcohol induced acute pancreatitis without necrosis or infection (principal); F10.229 Alcohol dependence with intoxication, unspecified; K29.20 Alcoholic gastritis without bleeding; E87.2 Acidosis; J02.9 Acute pharyngitis, unspecified; K62.89 Other specified diseases of anus and rectum; R15.9 Full incontinence of feces; R19.5 Other fecal abnormalities; F17.210 Nicotine dependence, cigarettes, uncomplicated; F12.10 Cannabis abuse, uncomplicated; R51 Headache; Y90.8 Blood alcohol level of 240 mg/100 ml or more; Z90.49 Acquired absence of other specified parts of digestive tract
CPT/HCPCS: 99285; 96361; 96374; 96375; 36415 ×3; 87070; 87880; 80307 ×5; 83605 ×3; 83690 ×3; 83735; 85025; 80048; 80053; 81001 ×2; 71045; 76705; 74177; J3490 ×10; J3475 ×3; J2765; J2060; J3480 ×3; C9113; J2550 ×2; J3411 ×3; J7030 ×4; S0028; 87077; G0378